=== PATIENT | male | born 1965 | race Caucasian/White ===

== ENCOUNTER 2020-07-31 16:55 | Outpatient (CLI) | payer BC, SELFPAY ==
[2020-07-31 17:43] LABS: SARS-CoV-2 Ag Negative (Negative)
== END 2020-07-31 16:56 | disposition home or self-care (01) ==
LOC: CHSLAB 16:59
PROVIDERS: PCP Family Medicine; Visit Provider Family Medicine
DX: Z20.828 Contact with and (suspected) exposure to other viral communicable diseases (principal)
CPT/HCPCS: 87426

== ENCOUNTER 2021-07-16 06:23 | Emergency (ER) | payer BC, SELFPAY ==
--- NOTE | ~2021-07-16 | CT_ITS ---
EXAMINATION: CT brain wo con EXAM DATE: 07/16/2021 08:11 INDICATION: blurred vision blurred vision today after possibly taking too much meds TECHNIQUE: Spiral CT of the head was performed without contrast. Axial, coronal and sagittal images were reviewed. The dose-length product (DLP) for this examination was 605.33 mGy-cm. The exposure w as tailored according to patient size, and iterative reconstruction (ASIR) was used as additional dos e reduction technique. Comparison is made to prior examination from 04/29/2019. FINDINGS: There is no acute intraparenchymal hemorrhage. No evidence of intraparenchymal brain mass lesion. No evidence of acute infarction. There is no mass effect or midline shift. The ventricles are normal in size. There are no extra-axial collections. There are no acute calvarial fractures. T he orbits are unremarkable. Soft tissue is unremarkable. The visualized sinuses and mastoid air ave ls are well aerated. IMPRESSION: 1. No acute intracranial findings. Reviewed, dictated and finalized at location B.
[2021-07-16 06:50] VITALS: BP 143/81; PULSE 92; RESP 21; TEMP 36.8; O2SAT 99
--- NOTE | 2021-07-16 06:57 | ECG_ITS ---
Measurements Intervals [place] Rate: 86 P: 18 DE: 233 QRS: 58 QRSD: 89 T: 7 QT: 367 QTc: 441 Interpretive Statements SINUS RHYTHM WITH FIRST DEGREE AV BLOCK EARLY PRECORDIAL R/S TRANSITION MINIMAL Q WAVES- INFERIOR LEADS ABNORMAL ECG Electronically Signed On 07-16-2021 8:40:05 CDT by Gregory Mckeon D.O.
--- NOTE | 2021-07-16 07:00 | ED.EYEPROB ---
HPI - Eye Problem General Chief complaint: Eye Problems <Cj Salmeron MD - Last Filed: 07/16/21 07:04> Stated complaint: Dizzy blured eyes <Cj Salmeron MD - Last Filed: 07/16/21 07:04> Source: patient <Cj Salmeron MD - Last Filed: 07/16/21 07:04> Mode of arrival: ambulatory <Cj Salmeron MD - Last Filed: 07/16/21 07:04> History of Present Illness HPI Narrative: this is a 56-year-old gentleman that presents after he inadvertently took extra dose of his Lamictal and developed ataxia and double vision, there is no chest pain no shortness of breath no fever chills, patient does have a history of seizures there is no chest pain no abdominal pain no headaches. <Cj Salmeron MD - Last Filed: 07/16/21 07:04> chief complaint: vision change <Cj Salmeron MD - Last Filed: 07/16/21 07:04> Onset (ago): hour(s) <Cj Salmeron MD - Last Filed: 07/16/21 07:04> Onset description: sudden <Cj Salmeron MD - Last Filed: 07/16/21 07:04> Duration: improved <Cj Salmeron MD - Last Filed: 07/16/21 07:04> Location: both eyes <Cj Salmeron MD - Last Filed: 07/16/21 07:04> Mechanism: other ( inadvertently took double dose of his Lamictal) <Cj Salmeron MD - Last Filed: 07/16/21 07:04> Severity: mild <Cj Salmeron MD - Last Filed: 07/16/21 07:04> Related Data Home medications: Home Medications Medication Instructions Recorded Confirmed lamotrigine 400 mg PO DAILY 07/16/21 07/16/21 <Cj Salmeron MD - Last Filed: 07/16/21 07:04> Allergies/adverse reactions: Allergies Allergy/AdvReac Type Severity Reaction Status Date / Time No Known Allergies Allergy Verified 07/16/21 06:43 <Cj Salmeron MD - Last Filed: 07/16/21 07:04> Review of Systems Review of Systems: All systems reviewed & are unremarkable except as noted in HPI and below <Cj Salmeron MD - Last Filed: 07/16/21 07:04> [facility] Past Medical History Medical History: Medical History Seizures <Cj Salmeron MD - Last Filed: 07/16/21 07:04> Family History Family History: Family History Other Family history of alcoholism Family history of arthritis Hypertension <Cj Salmeron MD - Last Filed: 07/16/21 07:04> Social History Social History: Social History Alcohol intake: never <Cj Salmeron MD - Last Filed: 07/16/21 07:04> Exam Const: General: no acute distress and alert <Cj Salmeron MD - Last Filed: 07/16/21 07:04> Orientation/consciousness: patient oriented x3 <Cj Salmeron MD - Last Filed: 07/16/21 07:04> HENMT: Head: normal to inspection <Cj Salmeron MD - Last Filed: 07/16/21 07:04> Eyes: Conjunctivae: conjunctivae normal <Cj Salmeron MD - Last Filed: 07/16/21 07:04> Pupils: Equal, round and reactive pupils present <Cj Salmeron MD - Last Filed: 07/16/21 07:04> Neck: Neck: normal visual inspection and no lymphadenopathy <Cj Salmeron MD - Last Filed: 07/16/21 07:04> Chest: Chest palpation & inspection: normal inspection of the chest <Cj Salmeron MD - Last Filed: 07/16/21 07:04> Resp: Effort & Inspection: normal respiratory effort <Cj Salmeron MD - Last Filed: 07/16/21 07:04> Auscultation: clear to auscultation bilaterally <Cj Salmeron MD - Last Filed: 07/16/21 07:04> Cardio: Rate: regular rate <Cj Salmeron MD - Last Filed: 07/16/21 07:04> Rhythm: regular rhythm <Cj Salmeron MD - Last Filed: 07/16/21 07:04> GI: Auscultation: normal bowel sounds <jC Salmeron MD - Last Filed: 07/16/21 07:04> Urinary Catheter: Urinary Catheter: patent and draining <Cj Salmeron MD - Last Filed: 06/19
--- NOTE | 2021-07-16 07:07 | PC.NURSE ---
poison control not contacted per MD Salmeron.
[2021-07-16] MEDS: SODIUM CHLORIDE 0.9% IV 500 ML 999 ML IV CONT (07:22)
[2021-07-16 07:31] LABS: Alanine Aminotransferase 42 U/L (16-63); Albumin Level 3.7 g/dL (3.4-5.0); Alkaline Phosphatase 99 U/L (46-116); Anion Gap 10 mmol/L (8-16); Aspartate Amino Transferase 22 U/L (15-37); Bilirubin,Total 0.5 mg/dL (0.00-1.00); Blood Urea Nitrogen 17 mg/dL (7-18); Calcium 8.1 mg/dL (8.5-10.1); Carbon Dioxide 27 mmol/L (21-32); Chloride 104 mmol/L (98-108); Creatine Kinase 87 U/L (39-308); Estimated CRCL calculation 71 ml/min; Estimated Glomerular Filt Rate > 60; Glucose 99 mg/dL (70-99); Osmolality Calculated 293 mOsm/kg (285-295); Potassium 3.8 mmol/L (3.5-5.1); Sodium 141 mmol/L (136-145); Total Protein 6.6 g/dL (6.4-8.2)
--- NOTE | 2021-07-16 08:10 | PC.NURSE ---
pt returned from CT. amb steadily without assistance to bathroom to void.
[2021-07-16 09:09] VITALS: BP 132/70; PULSE 79; RESP 16; TEMP 36.4; O2SAT 98
[2021-07-16] MEDS: CALCIUM CARBONATE (TUMS) 500 MG (200 MG ELEMENTAL) 400 MG PO (09:18)
== END 2021-07-16 09:22 | disposition home or self-care (01) ==
PROVIDERS: Emergency Provider Emergency Medicine; PCP Family Medicine
DX: T50.901A Poisoning by unspecified drugs, medicaments and biological substances, accidental (unintentional), initial encounter (principal); H53.2 Diplopia; R27.0 Ataxia, unspecified
CPT/HCPCS: 36415; 70450; 80053; 82550; 93005; 96360; 99283; 99284; A9270; J7040

== ENCOUNTER 2021-08-06 15:37 | Outpatient (CLI) | payer BC, SELFPAY ==
--- NOTE | ~2021-08-06 | XR_ITS ---
EXAMINATION:XR cervical spine min 6V DATE: 08/06/2021 16:00 INDICATION: Cervical radiculopathy with 2 weeks of pain shooting down the right arm. TECHNIQUE: AP, lateral, lateral flexion, lateral extension, left and right oblique and odontoid views of the cervical spine are provided. COMPARISON: CT dated 05/30/2019 FINDINGS: Straightening of the normal cervical lordosis. Hypermobility with flexion and negligible motion in th e upper cervical spine with attempted extension. Odontoid is intact. Mild atlantoaxial osteoarthritis . Vertebral body heights are normal. Moderate disc height loss at C3-C4 and mild disc height loss at C4-C5 and C5-C6. Small posterior endplate osteophytes resulting in mild central canal stenosis at eac h of these levels. Moderate to severe bilateral uncovertebral osteoarthritis also with each of these levels with multilevel mild cervical facet osteoarthritis. This contributes to mild neural foraminal stenosis on the left at C5-C6, on the right at C4-C5 and C5-C6 and minimal neural from stenosis bilat erally at C3-C4. Fixation screws at the left humeral head as seen on radiograph dated 05/30/2019. Prev ertebral soft tissues are normal. IMPRESSION: 1. Mild to moderate cervical spondylosis 2. Cervical hypomobility with flexion and particularly with attempted extension. Reviewed, dictated and finalized at location A. 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 Mild to moderate cervical spondylosis 2. Cervical hypomobility with flexion and particularly with attempted extension .
== END 2021-08-06 15:38 | disposition home or self-care (01) ==
LOC: CHSIMG 15:40
PROVIDERS: PCP Family Medicine; Visit Provider Neurological Surgery
DX: M54.12 Radiculopathy, cervical region (principal)
CPT/HCPCS: 72052

== ENCOUNTER 2021-11-12 07:24 | Emergency (ER) | payer OTHER, SELFPAY ==
--- NOTE | ~2021-11-12 | XR_ITS ---
EXAMINATION: [id number] DATE: 11/12/2021 08:16 INDICATION: Left anterior chest pain. Fall. TECHNIQUE: A frontal view of the chest and 2 views on 3 radiographs of the left ribs were obtained. COMPARISON: Chest 2 views 05/30/2019 FINDINGS: There is mild atelectasis at left lung base. No pleural effusion or pneumothorax. The heart size is normal. There is internal fixation of left humerus. There are fractures of left fifth and si xth ribs. IMPRESSION: 1. Acute fractures of left fifth and sixth ribs. 2. Mild atelectasis at left lung base. Reviewed, dictated and finalized at location A. ICAL WRITER
[2021-11-12 07:30] VITALS: BP 138/83; PULSE 94; RESP 20; TEMP 36.6; O2SAT 100
--- NOTE | 2021-11-12 07:43 | ED.FALL ---
HPI - Fall General Chief Complaint: Fall Stated Complaint: FELL ON ICE RIB PAIN Time Seen by Provider: 11/12/21 07:43 Source: patient History of Present Illness HPI Narrative: 56-year-old male with a history of seizures slipped on ice 20 minutes fell on his left side. No head injury. No loss of consciousness. No neck or spine pain. He presents with -- left chest wall pain made worse by deep breathing. -- shoulder pain. No bruising/laceration. No ENT. MD complaint: fall Onset (ago): minute(s) ( 20 minutes ago) Fall from: standing Fall witnessed: no Place fall occurred: work Loss of consciousness: none Prolonged down time: no Symptoms prior to fall: none Context: tripped/slipped Location of injury: chest Location of injury - extremities: Left: shoulder Severity: severe Quality: sharp Associated symptoms (after fall): chest pain Related Data Home Medications Medication Instructions Recorded Confirmed lamotrigine 400 mg PO BID 07/16/21 11/12/21 Allergies Allergy/AdvReac Type Severity Reaction Status Date / Time No Known Allergies Allergy Verified 07/16/21 06:43 Review of Systems Review of Systems: All systems reviewed & are unremarkable except as noted in HPI and below Constitutional: Constitutional: Reports as per HPI and Reports no additional constitutional complaints Eyes: Eyes: Reports as per HPI and Reports no additional eye complaints ENT: Reports system reviewed and no additional complaints, except as documented Cardiovascular: Cardiovascular: Reports as per HPI Respiratory: Respiratory: Reports as per HPI and Reports no additional respiratory complaints Comments: left chest wall pain predominantly anteriorly Gastrointestinal: Gastrointestinal: Reports as per HPI and Reports no additional gastrointestinal complaints Genitourinary: Genitourinary: Reports no additional male genitourinary complaints Musculoskeletal: Musculoskeletal: Reports no additional musculoskeletal complaints Integumentary/Breasts: Skin/Breast: Reports system reviewed and no additional complaints, except as docu Neurologic: Reports system reviewed and no additional complaints, except as documented and Reports as per HPI Psychiatric: Psychiatric: Reports no additional psychiatric complaints and Reports as per HPI Endocrine: Endocrine: Reports no additional endocrine complaints and Reports as per HPI Hematologic/Lymphatic: Hematologic/Lymphatic: Reports no additional hematologic/lymphatic complaints and Reports as per HPI Allergic/Immunologic: Allergic/Immunologic: Reports no additional allergic/immunologic complaints and Reports as per HPI [facility] Past Medical History Medical History Seizures Family History Family History Other Family history of alcoholism Family history of arthritis Hypertension Social History Social History Alcohol intake: never Exam Const: General: no acute distress and alert Orientation/consciousness: patient oriented x3 HENMT: Head: normal to inspection Eyes: Conjunctivae: conjunctivae normal Pupils: Equal, round and reactive pupils present Neck: Neck: normal visual inspection Chest: Chest palpation & inspection: normal inspection of the chest Other: tenderness on palpation of left anterior chest Resp: Effort & Inspection: normal respiratory effort Auscultation: clear to auscultation bilaterally Cardio: Rate: regular rate Rhythm: regular rhythm GI: GI Palp: Yes Soft to palpation : General: Yes no CVA tenderness Testes: Testes normal Back/Spine/Pelvis: Back: no CVA tenderness Skin: General skin exam: normal color Rashes: no rashes Neuro: General: patient oriented x3, moves all extremities and no meningeal signs Extrem: General: normal to inspection and no pedal edema Psych: Appearance
[2021-11-12] MEDS: KETOROLAC 30 MG/ML VIAL (*BKC) IM (08:10)
[2021-11-12] MEDS: ACETAMINOPHEN 500 MG TABLET 1000 MG PO (08:36)
[2021-11-12 08:48] VITALS: BP 131/66; PULSE 94; RESP 20; TEMP 36.4; O2SAT 98
== END 2021-11-12 09:02 | disposition home or self-care (01) ==
PROVIDERS: Emergency Provider Internal Medicine Critical Care Medicine; PCP Family Medicine
DX: S22.42XA Multiple fractures of ribs, left side, initial encounter for closed fracture (principal); W00.0XXA Fall on same level due to ice and snow, initial encounter
CPT/HCPCS: 71101; 96372; 99283; J1885

== ENCOUNTER 2022-03-14 18:54 | Emergency (ER) | payer BC, SELFPAY ==
[2022-03-14 18:55] VITALS: BP 136/82; PULSE 83; RESP 18; TEMP 37; O2SAT 100
--- NOTE | 2022-03-14 19:27 | ED.DENTAL ---
HPI - Dental/Oral General Chief complaint: Dental/Oral Stated complaint: tongue lesions Time Seen by Provider: 03/14/22 19:14 History of Present Illness HPI Narrative: 56-year-old male presented emergency room complaints of small red areas to the tongue. Patient states they are painless, and was eat spicy foods. Patient states that they have been present for the last 5 days. Patient also remarks that he has started taking Wellbutrin. Patient denies any other symptoms. Related Data Home Medications Medication Instructions Recorded Confirmed lamotrigine 200 mg tablet 400 mg PO BID 07/16/21 11/12/21 Allergies Allergy/AdvReac Type Severity Reaction Status Date / Time No Known Allergies Allergy Verified 03/14/22 18:58 Review of Systems Review of Systems: CONSTITUTIONAL: Denies fever, chills, or sweats. EYES: Denies visual changes, redness, or discharge. ENT: Denies rhinorrhea, congestion, sore throat, or otalgia. CARDIOVASCULAR: Denies chest pain, palpitations, or edema. RESPIRATORY: Denies cough or dyspnea. GASTROINTESTINAL: Denies abdominal pain, nausea, vomiting, or diarrhea. GENITOURINARY: Denies dysuria or hematuria. SKIN: Denies rash or itching. MUSCULOSKELETAL: Denies back pain, joint pain, or myalgia. NEUROLOGIC: Denies headache, numbness, dizziness, or weakness. PSYCHIATRIC: Denies anxiety or depression. PMFSH Past Medical History Medical History Seizures Family History Family History Other Family history of alcoholism Family history of arthritis Hypertension Social History Social History Alcohol intake: never Exam Narrative: GENERAL: Well-appearing, well-nourished, no physical limitations, and in no acute distress. HEAD: Normocephalic, atraumatic. EYES: Conjunctivae normal, PERRLA and EOMI. ENT: External nose normal, Nares clear, no rhinorrhea or epistaxis. Mucous membranes moist. Oropharynx without tonsillar hypertrophy exudate or other lesions. External ears normal, bilateral TMs normal bilaterally. Multiple, erythematous subcentimeter areas on posterior side of the tongue. There is no signs of centralized ulcerations. No bleeding or swelling noted. NECK: Supple. No meningeal signs. No adenopathy or masses. No carotid bruits or JVD CHEST: Clear to auscultation. No respiratory distress. No wheezes rales or rhonchi. No tenderness. HEART: Regular rate and rhythm. No murmur heard. Normal peripheral pulses. EXTREMITIES: Normal range of motion. No edema. No clubbing or cyanosis SKIN: Warm, dry, no rash. No noted wounds NEURO: No focal deficits. Alert and oriented x3. MAEW. CN's II-XI intact bilaterally, normal gait PSYCH: Cooperative. Normal mood and affect. Course Vital Signs Vital signs: Vital Signs Temperature 37.0 C 03/14/22 18:55 Pulse Rate 83 03/14/22 18:55 Respiratory Rate 18 03/14/22 18:55 Blood Pressure 136/82 03/14/22 18:55 Pulse Oximetry 100 03/14/22 18:55 Oxygen Delivery Room Air 03/14/22 18:55 Temperature 37.0 C 03/14/22 18:55 Pulse Rate 83 03/14/22 18:55 Respiratory Rate 18 03/14/22 18:55 Blood Pressure 136/82 03/14/22 18:55 Pulse Oximetry 100 03/14/22 18:55 Oxygen Delivery Room Air 03/14/22 18:55 Discharge Plan Discharge Clinical Impression: Aphthous ulcer Patient Disposition: Home, Self-Care Condition: Stable Instructions: Antibiotic Form, Canker Sores (ED) Prescriptions: New lidocaine HCl [Lidocaine Viscous] 2 % solution 1 applic mucous membrane TID PRN (Reason: pain) Qty: 100 0RF No Action lamotrigine 200 mg tablet 400 mg PO BID hydrocodone-acetaminophen 5-325 mg tablet 1 tablet PO Q6H PRN (Reason: pain) Qty: 14 0RF Follow-up/Referrals: Joaquin Aguiar M.D. [Primary Care Provider] - Stand Alone Forms:
== END 2022-03-14 19:44 | disposition home or self-care (01) ==
PROVIDERS: Emergency Provider Nurse Practitioner Family; PCP Family Medicine
DX: K12.0 Recurrent oral aphthae (principal)
CPT/HCPCS: 96372; 99283; J1100

== ENCOUNTER 2022-08-08 16:11 | Outpatient (RCR) | payer OTHER, SELFPAY ==
--- NOTE | 2022-08-08 17:28 | PTOPEVAL1 ---
Assessment and note entered by JT File, PT Evaluation Information Assessment Status Evaluation Diagnosis L knee mensicus tear s/p arthroscopic partial mensicectomy Onset 03/16/22 Subjective Information patient reports he injured his knee at work on . he reports he was getting out of a car responding to a call. 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 he reports he works for [employer] and [employer]. he reports had surgery on 07/21/22. he reports he had his follow up with his surgeon last week. he reports he is having a lot of swelling in the L knee. he reports he was checked for blood clots and this was negative. he reports aside from the swelling, he continues to ahve pain in the patella , and decreased rom. Reported Pain Level Pain Score 2: Self Report Assessment PT Clinical Summary mr. leone presents to skilled PT services for evaluation and treatment of L knee pain and swelling post op meniscus surgery. he presents this date with weakness, pain, decreased rom, abnormal gait mechanics, and swelling in the L knee and calf. he would do well to attend skilled PT to improve his objective/functional deficits and progress towards a return to his prior level work and functional activity performance. Plan of Care Interventions Electrical Stimulation,Gait Training,Hot Pack/Cold Pack,Manual Therapy,Neuro Re-education,Patient/ Caregiver Educati,Therapeutic Activities, Therapeutic Exercise PT Services Indicated Yes Treatment Frequency and 3x weekly for 12 visits Duration These treatments will address the objective and functional deficits as defined above. The patient will be advanced safely and appropriately in order for the patient to progress towards his/her prior level of function. Additional exercises will be introduced and as well as a comprehensive home exercise program upon discharge, if needed, ?to ensure carryover of functional gains achieved in the clinic. This treatment plan has been reviewed and agreement upon by the patient.
--- NOTE | 2022-10-06 21:30 | BUPTOPEVAL1 ---
Assessment and note entered by JT File, PT Evaluation Information Assessment Status Re-evaluation Diagnosis L knee mensicus tear s/p arthroscopic partial mensicectomy Onset 03/16/22 Subjective Information patient reports in general the L knee feels good, except for when he is in a deep squat. he reports the only time he has pain is with deep squatting. he reports this causes severe increased pain and popping in the L knee. he reports this was not present prior to his surgery. Reported Pain Level Pain Score 0: Self Report Additional Pain Score Comments severe pain in the L knee with deep squat Assessment PT Clinical Summary mr. leone presents to skilled PT services for treatment and re-evaluation at the end of his current POC. as of this date, he displays improved rom, strength, and gait mechanics. however, he continues to have severe pain and popping in the L knee with deep squatting activities. this was not present in his knee prior to injury, and patient would like to continue skilled PT to continue to work on complete elimination of his pain during deep squatting. he would benefit from continued skilled PT to continue to address his objective/ functional deficits, pain, and lack of full goals achievement. Plan of Care Interventions Gait Training,Manual Therapy,Neuro Re-education, Patient/Caregiver Educati,Therapeutic Activities, Therapeutic Exercise PT Services Indicated Yes Treatment Frequency and continue skilled PT 1x weekly for 4 more visits Duration These treatments will address the objective and functional deficits as defined above. The patient will be advanced safely and appropriately in order for the patient to progress towards his/her prior level of function. Additional exercises will be introduced and as well as a comprehensive home exercise program upon discharge, if needed, ?to ensure carryover of functional gains achieved in the clinic. This treatment plan has been reviewed and agreement upon by the patient.
--- NOTE | 2022-11-23 17:21 | PTOPDC ---
Assessment and note entered by JT File, PT Evaluation Information Assessment Status Discharge Diagnosis L knee mensicus tear s/p arthroscopic partial mensicectomy Onset 03/16/22 Subjective Information patient reports he has no pain in the L knee, except for deep squatting. he reports he recently asked the surgeon about this pain, and reports he thinks it may be scar tissue. he reports deep squatting is the only thing that causes him pain and that he avoids. he reports now he is more complicated by the R knee pain than the L knee pain. Reported Pain Level Pain Score 0,5: Self Report Assessment PT Clinical Summary mr. leone presents to skilled PT services for his 16th skilled therapy visit. as of this date, he presents with full strength, rom, and normal gait/ stair ambulation mechanics. he has met over 75% of goals for skilled PT, and is only limited by the L knee with deep squatting. he is appropriate for DC at this time, and will continue with independent HEP as he returns to full duty work. Plan of Care Treatment Frequency and DC to independent HEP and return to full work Duration
== END 2022-11-23 17:37 | disposition home or self-care (01) ==
LOC: CHSPT 16:11
PROVIDERS: Visit Provider Orthopaedic Surgery
DX: Z48.89 Encounter for other specified surgical aftercare (principal)
CPT/HCPCS: 20560; 97014; 97016; 97110; 97161; 97530; G0283

== ENCOUNTER 2022-10-16 07:46 | Emergency (ER) | payer BC, SELFPAY ==
--- NOTE | ~2022-10-16 | XR_ITS ---
EXAMINATION: XR chest 2V 10/16/2022 09:56 INDICATION: Cough and fever PROCEDURE: 2 view chest COMPARISON: Comparison to multiple prior studies sequentially, with oldest reviewed study dated 10/06. FINDINGS: The lungs are clear. The cardiomediastinal silhouette is within normal limits. There are no pleural effusions. There is no pneumothorax suspected. There are are partially visualized screws in the left humeral head. The lungs are hyperinflated which is consistent with, but not diagnostic o f chronic obstructive pulmonary disease. IMPRESSION: 1: NO ACUTE CARDIOPULMONARY DISEASE. Reviewed, dictated and finalized at location A. ORTIZATION CLERK
[2022-10-16 07:48] VITALS: BP 107/63; PULSE 105; RESP 20; TEMP 37.1; O2SAT 99
--- NOTE | 2022-10-16 07:53 | ECG_ITS ---
Measurements Intervals [place] Rate: 95 P: 21 MT: 215 QRS: 57 QRSD: 86 T: 47 QT: 336 QTc: 423 Interpretive Statements SINUS RHYTHM WITH FIRST DEGREE AV BLOCK EARLY PRECORDIAL R/S TRANSITION BORDERLINE ECG COMPARED TO ECG 07/16/2021 07:14:18 NO SIGNIFICANT CHANGES Electronically Signed On 10-16-2022 8:04:03 EXTRACT WRINGER by Gregory Mckeon D.O.
[2022-10-16 08:01] VITALS: PULSE 94; O2SAT 100
[2022-10-16 08:03] VITALS: BP 130/66; PULSE 94; RESP 19; O2SAT 100
[2022-10-16 08:25] LABS: Basophils Percent Auto 0.3 % (0.2-1.2); Eosinophils Absolute Auto 0.1 K/mm3 (0-0.3); Eosinophils Percent Auto 0.7 % (0-4.4); Hematocrit 48.1 % (42.0-52.0); Hemoglobin 16.7 g/dL (14.0-18.0); Immature Granulocyte Absolute 0.04 K/mm3 (0.00-0.031); Immature Granulocyte Percent A 0.3 % (0-0.5); Lymphocytes Absolute Auto 1.01 K/mm3 (0.9-3.2); Lymphocytes Percent Auto 8.5 % (18.3-44.2); Mean Corpuscular HGB Conc 34.7 g/dl (32-36); Mean Corpuscular Hemoglobin 31.4 pg (26-34); Mean Corpuscular Volume 90.4 fl (80-100); Mean Platelet Volume 9.1 fl (7.4-10.4); Monocytes Absolute Auto 0.9 K/mm3 (0.1-0.6); Monocytes Percent Auto 7.4 % (2.6-8.5); Neutrophils Absolute Auto 9.8 K/mm3 (1.3-6.7); Neutrophils Percent Auto 82.8 % (45.5-73.1); Platelet Count Result 308 k/mm3 (150-375); Red Blood Count 5.32 M/mm3 (4.6-6.20); Red Cell Distribution Width 12.8 % (11.5-14.5); White Blood Count 11.8 K/mm3 (4.5-10.0)
[2022-10-16] MEDS: SODIUM CHLORIDE 0.9% IV 1,000 ML 999 ML IV CONT ×2 (08:28→09:51)
[2022-10-16] MEDS: KETOROLAC 30 MG/ML VIAL (*BKC) IV PUSH (08:29)
[2022-10-16 08:35] LABS: Alanine Aminotransferase 68 U/L (6-50); Albumin Level 4.7 g/dL (3.5-5.1); Alkaline Phosphatase 136 U/L (38-126); Anion Gap 8 mmol/L (8-16); Aspartate Amino Transferase 71 U/L (17-59); Bilirubin,Total 1.1 mg/dL (0.2-1.3); Blood Urea Nitrogen 14 mg/dL (9-20); Carbon Dioxide 28 mmol/L (22-30); Chloride 102 mmol/L (98-107); Estimated CRCL calculation 69 ml/min; Estimated Glomerular Filt Rate > 60; Glucose 108 mg/dL (65-110); Potassium 3.9 mmol/L (3.4-5.0); Sodium 138 mmol/L (137-145)
[2022-10-16 09:12] LABS: Influenza A QL RT-PCR Negative (Negative); Influenza B QL RT-PCR Negative (Negative); SARS-CoV-2 RNA PCR Negative
--- NOTE | 2022-10-16 09:38 | ED.GENADULT ---
HPI - General Adult General Chief complaint: Seizure Stated complaint: I had a seizure last night Time Seen by Provider: 10/16/22 07:54 History of Present Illness HPI narrative: Patient is a 57-year-old male who presents ER with concerns for having a seizure. Patient reports last night he was having some sweats and chills and also had some shaking. He then was having bad dreams. When he woke up this morning he felt a little achy and thought that that was consistent with having had a seizure. He did not have loss of bowel or bladder. He did not bite his tongue. He takes Lamictal. Related Data Home Medications Medication Instructions Recorded Confirmed lamotrigine 200 mg tablet 400 mg PO BID 07/16/21 11/12/21 atorvastatin 20 mg tablet mg 10/16/22 Allergies Allergy/AdvReac Type Severity Reaction Status Date / Time No Known Allergies Allergy Verified 10/16/22 08:03 Review of Systems Review of Systems: All systems reviewed & are unremarkable except as noted in HPI and below Constitutional: Constitutional: Denies chills, Denies fatigue and Denies fever(s) ENT: Denies dysphagia and Denies nasal congestion Cardiovascular: Cardiovascular: Denies chest pain, Denies rapid heart rate and Denies radiating jaw, neck or arm pain Respiratory: Respiratory: Denies cough and Denies dyspnea Gastrointestinal: Gastrointestinal: Denies abdominal pain, Denies nausea and Denies vomiting Musculoskeletal: Musculoskeletal: Reports myalgias, Denies arthralgias and Denies joint swelling Neurologic: Denies syncope, Denies headache(s), Denies focal weakness and Denies numbness PMFSH Past Medical History Medical History Seizures Family History Family History Other Family history of alcoholism Family history of arthritis Hypertension Social History Social History Alcohol intake: never Exam Narrative: GENERAL: Well-appearing, well-nourished, and in no acute distress. HEAD: Normocephalic, atraumatic. EYES: PERRL and EOMI. ENT: Mucous membranes moist. CHEST: Clear to auscultation. No respiratory distress. HEART: Regular rate and rhythm. Normal peripheral pulses. ABDOMEN: Soft, nontender, nondistended. EXTREMITIES: Normal range of motion. No edema. SKIN: Warm, dry, no rash. NEURO: Alert and oriented x3. PSYCH: Normal mood and affect. Course Course Emergency Course: Patient resting comfortably. No evidence of tongue biting. Suspect patient is having viral syndrome as opposed to post seizure symptoms. Patient will be discharged. Vital Signs Vital signs: Vital Signs Temperature 98.8 F 10/16/22 07:48 Pulse Rate 105 H 10/16/22 07:48 Respiratory Rate 20 10/16/22 07:48 Blood Pressure 107/63 10/16/22 07:48 Pulse Oximetry 99 10/16/22 07:48 Oxygen Delivery Room Air 10/16/22 07:48 Temperature 98.8 F 10/16/22 07:48 Pulse Rate 60 10/16/22 12:50 Respiratory Rate 18 10/16/22 12:50 Blood Pressure 115/72 10/16/22 12:50 Pulse Oximetry 96 10/16/22 12:50 Oxygen Delivery Room Air 10/16/22 10:49 Medical Decision Making Vital Signs Vital Signs: Vital Signs Temperature 98.8 F 10/16/22 07:48 Pulse Rate 105 H 10/16/22 07:48 Respiratory Rate 20 10/16/22 07:48 Blood Pressure 107/63 10/16/22 07:48 Pulse Oximetry 99 10/16/22 07:48 Oxygen Delivery Room Air 10/16/22 07:48 Temperature 98.8 F 10/16/22 07:48 Pulse Rate 60 10/16/22 12:50 Respiratory Rate 18 10/16/22 12:50 Blood Pressure 115/72 10/16/22 12:50 Pulse Oximetry 96 10/16/22 12:50 Oxygen Delivery Room Air 10/16/22 10:49 Lab Data 10/16/22 08:21 10/16/22 08:20 Labs: Lab Results 10/16/22 10/16/22 10/16/22 Range/Units 08:20 08:20 08:21 WBC 11.8 H (4.5-10.0) K/mm3 RBC 5.3
[2022-10-16 10:49] VITALS: BP 109/65; PULSE 92; RESP 16; O2SAT 100; O2SAT 98
[2022-10-16 12:50] VITALS: BP 115/72; PULSE 60; RESP 18; O2SAT 96
== END 2022-10-16 13:03 | disposition home or self-care (01) ==
PROVIDERS: Emergency Provider Emergency Medicine
DX: B34.9 Viral infection, unspecified (principal); Z20.822 Contact with and (suspected) exposure to COVID-19
CPT/HCPCS: 36415; 71046; 80053; 85025; 87636; 93005; 96361; 96374; 99284; J1885; J7030

== ENCOUNTER 2022-12-28 16:00 | Outpatient (RCR) | payer BC, SELFPAY ==
--- NOTE | 2022-12-28 16:49 | PTOPEVAL1 ---
Assessment and note entered by JT File, PT Evaluation Information Assessment Status Evaluation Diagnosis R knee pain Onset 12/21/22 Subjective Information patient reports he is coming to therapy for pain in the R knee. he reports he has been having pain in the R knee for 3 weeks. he reports he does have a large tear in the medial meniscus. he reports no surgery scheduled at this time. he reports he had an injection last week. he reports since injection it has been doing well. he reports prior to the injection any rotation, sitting, and steps would cause increased pain. Reported Pain Level Pain Score 0: Self Report Assessment PT Clinical Summary mr. leone is a 57 yo male who presents to skilled PT services for evaluation and treatment of R knee pain. he has a torn meniscus of the medial compartment of the R knee. he displays decreased R knee flexion, hamstrings tightness, and decreased functional activity performance. however, he has been doing significantly better since his injection last week. he would benefit from continued skilled PT to address his objective/ functional deficits and progress towards a return to his prior level functional activity performance and quality of life. Plan of Care Interventions Electrical Stimulation,Gait Training,Hot Pack/Cold Pack,Manual Therapy,Neuro Re-education,Patient/ Caregiver Educati,Therapeutic Activities, Therapeutic Exercise PT Services Indicated Yes Treatment Frequency and 2x weekly for 6 visits Duration These treatments will address the objective and functional deficits as defined above. The patient will be advanced safely and appropriately in order for the patient to progress towards his/her prior level of function. Additional exercises will be introduced and as well as a comprehensive home exercise program upon discharge, if needed, ?to ensure carryover of functional gains achieved in the clinic. This treatment plan has been reviewed and agreement upon by the patient.
== END 2022-12-28 23:59 | disposition home or self-care (01) ==
LOC: CHSPT 16:00
DX: M25.561 Pain in right knee (principal)
CPT/HCPCS: 97110; 97161

== ENCOUNTER 2023-12-15 18:00 | Emergency (ER) | payer OTHER, SELFPAY ==
--- NOTE | ~2023-12-15 | CT_ITS ---
EXAMINATION: CT orbit BI w con DATE: 12/15/2023 19:17 INDICATION: right sided eye pain, swelling, discharge . TECHNIQUE: Computed tomography (CT) of the orbits was performed with 75 mL Omnipaque 350 intravenous contrast. Automated exposure control and iterative reconstruction technique were employed. The dose-l ength product was 153.59 mGy-cm. COMPARISON: None. FINDINGS: Soft Tissues: Soft tissue swelling of the right upper and lower eyelids. Facial bones: No acute fracture. No lytic or blastic process. Eyes: The globes are intact. Mild preseptal edema/fluid and hyperemia. The soft tissue planes of the orbits are maintained. Paranasal Sinuses: Inferior right frontal and bilateral maxillary and ethmoid mucosal thickening. Th e remaining aerated spaces are clear Foreign Bodies: No radiopaque foreign bodies. Other Findings: None. IMPRESSION: CT findings concerning for right preseptal cellulitis. Reviewed, dictated and finalized at location [facility].
[2023-12-15 18:03] VITALS: BP 152/65; PULSE 92; RESP 18; TEMP 36.9; O2SAT 99
--- NOTE | 2023-12-15 18:07 | ED.EYEPROB ---
HPI - Eye Problem General Chief complaint: Eye Problems <GEE Barnett Last Filed: 12/17/23 10:20> Stated complaint: pink eye <GEE Barnett Last Filed: 12/17/23 10:20> Time Seen by Provider: 12/15/23 18:07 <Elizabeth Duran PA-C - Last Filed: 12/17/23 10:20> Focused HPI: This is a 58 year old male that presents to the ER for right eye pain and discharge. Ongoing since this morning. He was seen at urgent care and started on topical therapy. Reports progressive swelling which prompted him to be seen in the ER. Denies fevers or vision changes. GENERAL: Well-appearing, well-nourished, and in no acute distress. HEAD: Normocephalic, atraumatic. CHEST: Clear to auscultation. ?No respiratory distress. HEART: Regular rate and rhythm.? NEURO: ?Alert and oriented x3. Patient screened in triage and initial orders placed.? ?Additional care and disposition to be based upon?diagnostic testing and treatment. <Elizabeth Duran PA-C - Last Filed: 12/17/23 10:20> Focused HPI: This is a 58 year old male that presents to the ER for right eye pain and discharge. Ongoing since this morning. He was seen at urgent care and started on topical therapy for pink eye. Reports progressive swelling which prompted him to be seen in the ER. Denies fevers or vision changes. GENERAL: Well-appearing, well-nourished, and in no acute distress. HEAD: Normocephalic, atraumatic. CHEST: Clear to auscultation. ?No respiratory distress. HEART: Regular rate and rhythm.? NEURO: ?Alert and oriented x3. Patient screened in triage and initial orders placed.? ?Additional care and disposition to be based upon?diagnostic testing and treatment. <GEE Yost Last Filed: 12/16/23 03:39> Source: patient <GEE Yost Last Filed: 12/16/23 03:39> Mode of arrival: ambulatory <GEE Yost Last Filed: 12/16/23 03:39> Limitations: no limitations <Rosemary Garduno PA-C - Last Filed: 12/16/23 03:39> History of Present Illness HPI Narrative: Agree with above MSE documentation. Denies pain with eye movements. <Rosemary Garduno PA-C - Last Filed: 12/16/23 03:39> Related Data Home medications: Home Medications Medication Instructions Recorded Confirmed lamotrigine 200 mg tablet 400 mg PO BID 07/16/21 11/12/21 atorvastatin 20 mg tablet mg 10/16/22 <Elizabeth Duran PA-C - Last Filed: 12/17/23 10:20> Allergies/adverse reactions: Allergies Allergy/AdvReac Type Severity Reaction Status Date / Time No Known Allergies Allergy Verified 12/15/23 18:01 <Elizabeth Duran PA-C - Last Filed: 12/17/23 10:20> Review of Systems Review of Systems: CONSTITUTIONAL: Denies fever, chills, or sweats. EENT: See HPI. NEUROLOGIC: Denies headache, dizziness, numbness, or weakness. <Rosemary Garduno PA-C - Last Filed: 12/16/23 03:39> All systems reviewed & are unremarkable except as noted in HPI and below <Rosemary Garduno PA-C - Last Filed: 12/16/23 03:39> PMFSH Past Medical History Medical History: Medical History Seizures <Elizabeth Duran PA-C - Last Filed: 12/17/23 10:20> Family History Family History: Family History Other Family history of alcoholism Family history of arthritis Hypertension <Elizabeth Duran PA-C - Last Filed: 12/17/23 10:20> Social History Social History: Social History Alcohol intake: never <Elizabeth Duran PA-C - Last Filed: 12/17/23 10:20> Exam Narrative: GENERAL: Well appearing, well-nourished, non-toxic, in no acute distress. HEAD: Normocephalic, atraumatic. EYES: PERRL/EOMI. R eye conjunctiva diffusely erythematous and chemotic. Yellow green purulent drainage from R eye, crusting in eyelid
[2023-12-15 18:20] LABS: Basophils Absolute Auto 0.1 K/mm3 (0.0-0.1); Basophils Percent Auto 0.6 % (0.2-1.2); Eosinophils Absolute Auto 0.3 K/mm3 (0-0.3); Eosinophils Percent Auto 3.3 % (0-4.4); Hematocrit 46.3 % (42.0-52.0); Hemoglobin 15.7 g/dL (14.0-18.0); Immature Granulocyte Absolute 0.02 K/mm3 (0.00-0.031); Immature Granulocyte Percent A 0.2 % (0-0.5); Lymphocytes Absolute Auto 2.01 K/mm3 (0.9-3.2); Lymphocytes Percent Auto 19.9 % (18.3-44.2); Mean Corpuscular HGB Conc 33.9 g/dl (32-36); Mean Corpuscular Volume 91.5 fl (80-100); Mean Platelet Volume 9.4 fl (7.4-10.4); Monocytes Percent Auto 9.8 % (2.6-8.5); Neutrophils Absolute Auto 6.7 K/mm3 (1.3-6.7); Neutrophils Percent Auto 66.2 % (45.5-73.1); Platelet Count Result 295 k/mm3 (150-375); Red Blood Count 5.06 M/mm3 (4.6-6.20); Red Cell Distribution Width 12.8 % (11.5-14.5); White Blood Count 10.1 K/mm3 (4.5-10.0)
[2023-12-15 18:36] LABS: Anion Gap 3 mmol/L (4-12); Blood Urea Nitrogen 18 mg/dL (9-20); Calcium 9.2 mg/dL (8.4-10.2); Carbon Dioxide 32 mmol/L (22-30); Chloride 104 mmol/L (98-107); Estimated CRCL calculation 100 ml/min; Estimated Glomerular Filt Rate > 60; Glucose 126 mg/dL (65-110); Potassium 3.9 mmol/L (3.4-5.0); Sodium 139 mmol/L (137-145)
[2023-12-15 18:43] LABS: Erythrocyte Sedimentation Rate 4 mm/hr (0-20)
[2023-12-15 18:49] LABS: CRP < 0.5 mg/dL (<1.0)
[2023-12-15] MEDS: AMOXICILLIN/CLAVULANATE K 875-125 MG TAB 1 TABLET PO (20:52)
[2023-12-15] MEDS: CLINDAMYCIN HCL 150 MG CAP 300 MG PO (20:53)
[2023-12-15 20:56] VITALS: BP 143/80; PULSE 67; RESP 15; TEMP 36.7; O2SAT 99
== END 2023-12-15 20:57 | disposition home or self-care (01) ==
PROVIDERS: Physician Assistant; Emergency Provider Physician Assistant; PCP Family Medicine
DX: L03.213 Periorbital cellulitis (principal); H10.89 Other conjunctivitis
CPT/HCPCS: 36415; 70481; 80048; 85025; 85652; 86140; 99284; A9270; Q9967

== ENCOUNTER 2023-12-26 08:58 | Emergency (ER) | payer OTHER, SELFPAY ==
[2023-12-26 09:12] VITALS: BP 139/76; PULSE 92; RESP 18; TEMP 36.4; O2SAT 99
--- NOTE | 2023-12-26 09:33 | ED.EYEPROB ---
HPI - Eye Problem General Chief complaint: Eye Problems Stated complaint: eyes Time Seen by Provider: 12/26/23 09:02 History of Present Illness HPI Narrative: 58-year-old male presents to emergency department for bilateral eye redness for 1 day. Patient was seen at a clinic for right eye irritation and redness on 12/15/2023. He was prescribed Polytrim drops for conjunctivitis which he has been taking daily as directed since. States later that day on the he began having surrounding edema to his right eye which prompted him to come to the ER. He was seen in our emergency department and had CT scans of his orbits which showed findings concerning for right preseptal cellulitis. He was started on Augmentin and clindamycin which he states he took for approximately 4 days until he began developing diarrhea. States his symptoms had improved so he discontinued the antibiotics but continue the topical eyedrops. States yesterday he began noticing redness, itchiness and aching in both of his eyes with associated drainage. He reports a foreign body sensation in his left eye. He does not were contacts. Denies vision changes, photophobia, headache, fever, pain with EOMs. States he does not have swelling around his eyes like he did when he came on the , he has a picture of his eye at that time which does show significant periorbital swelling. States he has not followed up with an clinical documentation developer because the symptoms were improving. Related Data Home Medications Medication Instructions Recorded Confirmed lamotrigine 200 mg tablet 400 mg PO BID 07/16/21 11/12/21 atorvastatin 20 mg tablet mg 10/16/22 Allergies Allergy/AdvReac Type Severity Reaction Status Date / Time No Known Allergies Allergy Verified 12/26/23 09:17 Review of Systems Review of Systems: CONSTITUTIONAL: Denies fever, chills, or sweats. EYES: See HPI ENT: Denies rhinorrhea, congestion, sore throat, or otalgia. CARDIOVASCULAR: Denies chest pain, palpitations, or edema. RESPIRATORY: Denies cough or dyspnea. GASTROINTESTINAL: Denies abdominal pain, nausea, vomiting, or diarrhea. GENITOURINARY: Denies dysuria or hematuria. SKIN: Denies rash or itching. MUSCULOSKELETAL: Denies back pain, joint pain, or myalgia. NEUROLOGIC: Denies headache, numbness, or weakness. PSYCHIATRIC: Denies anxiety or depression. PMFSH Past Medical History Medical History Seizures Family History Family History Other Family history of alcoholism Family history of arthritis Hypertension Social History Social History Alcohol intake: never Exam Narrative: GENERAL: Well-appearing, well-nourished, and in no acute distress. HEAD: Normocephalic, atraumatic. EYES: PERRLA and EOMI. Bilateral palpebral and bulbar conjunctivae erythema. No chemosis or ciliary flush. No ophthalmoplegia or pain with extraocular movements. No surrounding periorbital edema or erythema. Fluorescein staining shows no evidence of ulcerations, keratitis or foreign bodies bilaterally. Intra-ocular pressures unsure 14 on the right eye and 17 in the left eye. ENT: Nares clear, no rhinorrhea or epistaxis. Mucous membranes moist. NECK: Supple. CHEST: Clear to auscultation. No respiratory distress. HEART: Regular rate and rhythm. No murmur heard. Normal peripheral pulses. EXTREMITIES: Normal range of motion. No edema. SKIN: Warm, dry, no rash. NEURO: No focal deficits. Alert and oriented x3 Course Vital Signs Vital signs: Vital Signs Temperature 97.6 F 12/26/23 09:12 Pulse Rate 92 12/26/23 09:12 Respiratory Rate 18 12/26/23 09:12 Blood Pressure 139/76 12/26/23 09:12 Pulse Oximetry 99 12/26/23 09:12 Oxygen Delivery Room Air 12/26/23 09:12 Temperature 97.6 F 12/26/23 09:12 Pulse Rate 81 04/0
[2023-12-26] MEDS: WATER FOR IRRIGATION, STERILE 500 ML BOTTLE (09:40)
[2023-12-26 10:32] VITALS: BP 122/76; PULSE 81; RESP 18; O2SAT 98
== END 2023-12-26 10:33 | disposition home or self-care (01) ==
PROVIDERS: Emergency Provider Physician Assistant; PCP Family Medicine
DX: H10.89 Other conjunctivitis (principal)
CPT/HCPCS: 99283; A9270

== ENCOUNTER 2024-08-29 07:04 | Emergency (ER) | payer OTHER, SELFPAY ==
--- NOTE | ~2024-08-29 | CT_ITS ---
CT of the Abdomen and Pelvis: Indication: Rectal bleeding Technique: 2.5 mm axial scans were obtained through the abdomen and pelvis following intravenous adm inistration of 100 cc of Omnipaque 350. Dose reduction technique was used on this scan by utilizing a utomated exposure control and iterative reconstruction technique. The dose-length product (DLP) was 8 16.08 mGy-cm. Findings: Scans through the lung bases are unremarkable. The liver, spleen, pancreas, adrenals and kidneys are within normal limits. Small gallstone present. No evidence of aortic aneurysm. No lymphadenopathy. No bowel obstruction or bowel wall thickening. There is no evidence to suggest acute appendicitis. Sm all fat-containing umbilical hernia noted. Images through the pelvis were performed. Urinary bladder unremarkable. Prostate gland mildly enlarge d. No abnormal pelvic mass seen. No ascites. Impression: No distinct etiology for rectal bleeding identified. Small gallstone. Small fat-containing umbilical hernia. Reviewed, dictated and finalized at [facility]. M TRAP MAN Impression: No distinct etiology for rectal bleeding identified. Small gallstone. Small fat-containing umbilical hernia.
[2024-08-29 07:13] VITALS: BP 136/83; PULSE 79; RESP 18; TEMP 36.7; O2SAT 100
[2024-08-29 07:48] LABS: Basophils Absolute Auto 0.1 K/mm3 (0.0-0.1); Basophils Percent Auto 1.2 % (0.2-1.2); Eosinophils Absolute Auto 0.3 K/mm3 (0-0.3); Eosinophils Percent Auto 5.9 % (0-4.4); Hematocrit 47.8 % (42.0-52.0); Hemoglobin 16.5 g/dL (14.0-18.0); Immature Granulocyte Absolute 0.07 K/mm3 (0.00-0.031); Immature Granulocyte Percent A 1.2 % (0-0.5); Mean Corpuscular HGB Conc 34.5 g/dl (32-36); Mean Corpuscular Volume 92.6 fl (80-100); Mean Platelet Volume 9.2 fl (7.4-10.4); Monocytes Absolute Auto 0.7 K/mm3 (0.1-0.6); Neutrophils Absolute Auto 2.7 K/mm3 (1.3-6.7); Neutrophils Percent Auto 46.7 % (45.5-73.1); Platelet Count Result 257 k/mm3 (150-375); Red Blood Count 5.16 M/mm3 (4.6-6.20); Red Cell Distribution Width 12.4 % (11.5-14.5); White Blood Count 5.8 K/mm3 (4.5-10.0)
[2024-08-29 07:53] LABS: Alanine Aminotransferase 31 U/L (6-50); Albumin Level 4.4 g/dL (3.5-5.1); Alkaline Phosphatase 84 U/L (38-126); Anion Gap 5 mmol/L (4-12); Aspartate Amino Transferase 37 U/L (17-59); Bilirubin,Total 0.8 mg/dL (0.2-1.3); Blood Urea Nitrogen 13 mg/dL (9-20); Calcium 8.8 mg/dL (8.4-10.2); Carbon Dioxide 29 mmol/L (22-30); Chloride 106 mmol/L (98-107); Estimated CRCL calculation 73 ml/min; Estimated Glomerular Filt Rate > 60; Glucose 101 mg/dL (65-110); Lipase 93 U/L (23-300); Magnesium 2.1 mg/dL (1.6-2.3); Potassium 3.9 mmol/L (3.4-5.0); Sodium 140 mmol/L (137-145)
--- NOTE | 2024-08-29 07:53 | ED_ITS ---
HPI - GI Bleed General Chief complaint: GI Bleed Stated complaint: rectal bleeding Time Seen by Provider: 08/29/24 07:11 History of Present Illness HPI Narrative: Patient with h/o hemorrhoids, normal colonoscopy 8 yr ago p/w BRBPR; noticed when he wipes, had some recently but much more this morning. No n/v, abd pain. Related Data Home Medications ?Medication ?Instructions ?Recorded ?Confirmed ?Last Taken ?Type lamotrigine 200 mg tablet 400 mg PO BID 07/16/21 11/12/21 07/16/21 History 06 atorvastatin 20 mg tablet mg 10/16/22 Unknown History Allergies Allergy/AdvReac Type Severity Reaction Status Date / Time No Known Allergies Allergy Verified 08/29/24 07:19 Review of Systems 2 Review of Systems: All systems reviewed & are unremarkable except as noted in HPI and below PMFSH Past Medical History Medical History Seizures Family History Family History Other Family history of alcoholism Family history of arthritis Hypertension Social History Social History Alcohol intake: never Exam 2 Narrative: EXAMINATION OF ORGAN SYSTEMS/BODY AREAS: Constitutional: Vital signs per nursing GENERAL:[No acute distress, non-toxic appearing.] HEAD: Normal with no signs of head trauma. EYES: EOMI, conjunctiva normal ENT: Hearing grossly intact LUNGS: Nonlabored breathing. HEART: [Regular rate and rhythm] ABD: [Soft], [nontender to palpation] RECTAL: Several external hemorrhoids. Decent amount of blood on rectal exam; no significant tenderness EXT: Normal range of motion SKIN: [No rashes or lesions.] NEURO: [Alert and oriented x 3. No gross focal sensory or strength deficits.] PSYCH: Normal affect Course Vital Signs Vital signs: Vital Signs Temperature 98.1 F 08/29/24 07:13 Pulse Rate 79 08/29/24 07:13 Respiratory Rate 18 08/29/24 07:13 Blood Pressure 136/83 08/29/24 07:13 Pulse Oximetry 100 08/29/24 07:13 Oxygen Delivery Room Air 08/29/24 07:13 Temperature 98.1 F 08/29/24 07:13 Pulse Rate 79 08/29/24 07:13 Respiratory Rate 18 08/29/24 07:13 Blood Pressure 136/83 08/29/24 07:13 Pulse Oximetry 100 08/29/24 07:13 Oxygen Delivery Room Air 08/29/24 07:13 MDM - GI Bleed MDM Narrative Medical decision making narrative: patient presenting with lower GI bleed, bright red blood, I can see that on exam also; No tenderness rectally, he does have some hemorrhoids, no active hemorrhage. hemoglobin thankfully stable here, CT abdomen/ pelvis does not show any obvious significant active bleeding which is reassuring. Patient has been observed here for several hours and has not had any further hemorrhaging. Discussed with GI Dr. Brothers who is agreeable to seeing patient in the clinic as soon as possible, return precautions are discussed with the patient. Patient agreeable to the plan. Lab Data 08/29/24 07:34 08/29/24 07:34 Labs: Lab Results 08/29/24 08/29/24 Range/Units 07:34 07:34 WBC 5.8 (4.5-10.0) K/mm3 RBC 5.16 (4.6-6.20) M/mm3 Hgb 16.5 (14.0-18.0) g/dL Hct 47.8 (42.0-52.0) % MCV 92.6 (80-100) fl MCH 32.0 (26-34) pg MCHC 34.5 (32-36) g/dl RDW 12.4 (11.5-14.5) % Plt Count 257 (150-375) k/mm3 MPV 9.2 (7.4-10.4) fl Immature Gran % (Auto) 1.2 H (0-0.5) % Neut % (Auto) 46.7 (45.5-73.1) % Lymph % (Auto) 33.0 (18.3-44.2) % Clayton % (Auto) 12.0 H (2.6-8.5) % Eos % (Auto) 5.9 H (0-4.4) % Baso % (Auto) 1.2 (0.2-1.2) % Lymph # (Auto) 1.90 (0.9-3.2) K/mm3 Clayton # (Auto) 0.7 H (0.1-0.6) K/mm3 Eos # (Auto) 0.3 (0-0.3) K/mm3 Baso # (Auto) 0.1 (0.0-0.1) K/mm3 Abs Immat Gran (auto) 0.07 H (0.00-0.031) K/mm3 Absolute Neuts (auto) 2.7 (1.3-6.7) K/mm3 Absolute Nucleated RBC 0.000 (0.0-0.012) K/mm3 Nucleated RBC % 0.0 (0.0-0.2) % Sodium 140 (137-145) mmol/L Potassium 3.9 (3.4-5.0) mmol/L Chloride 106 (98-107) mmol/L Carbon Dioxide 29 (22-30) mmol/L Anion Gap 5 (4-12) mmol/L BUN 13 D (9-20) mg/dL Creatinine 1.10 (0.7-1.3) mg/dL Estim Creat Clear Calc 73 ml/min Estimated GFR > 60 (59 - ) Glucose 101 (65-110) mg/dL Calcium 8.8 (8.4-10.2) mg/dL Magnesium 2.1 (1.6-2.3) mg/dL Total Bilirubin 0.8 (0.2-1.3) mg/dL AST 37 (17-59) U/L ALT 31 (6-50) U/L Alkaline Phosphatase 84 (38-126) U/L Total Protein 7.0 (6.3-8.2) g/dL Albumin 4.4 (3.5-5.1) g/dL Lipase 93 Cancelled (23-300) U/L Discharge Plan Discharge Clinical Impression: BRBPR (bright red blood per rectum) Patient Disposition: Home, Self-Care Condition: Stable Instructions: Rectal Bleeding (ED) Additional Instructions: Please follow-up with the GI doctor, if you start having heavier bleeding, or if the bleeding does not stop, please come back to the emergency room. Patient Language: Kosovan Prescriptions: No Action lamotrigine 200 mg tablet 400 mg PO BID atorvastatin 20 mg tablet amoxicillin-pot clavulanate 875-125 mg tablet 1 tablet PO Q12H 7 Days Qty: 14 0RF clindamycin HCl 300 mg capsule 300 mg PO Q8H 7 Days Qty: 21 0RF cefdinir 300 mg capsule 300 mg PO Q12H Qty: 14 0RF ciprofloxacin HCl 0.3 % drops See Rx Instructions .ROUTE .COMPLEX Qty: 10 0RF Rx Instructions: put 1-2 drps in affected eye(s) every 2hr up to 8 times/day x2days; then 4 times/day x5days Follow-up/Referrals: Joaquin Aguiar M.D. [Primary Care Provider] - Derrick Willis MD [Physician] - 2 Days
[2024-08-29 09:47] VITALS: BP 137/86; PULSE 80; RESP 18; O2SAT 99
== END 2024-08-29 09:47 | disposition home or self-care (01) ==
PROVIDERS: Emergency Provider Emergency Medicine; PCP Family Medicine
DX: K62.5 Hemorrhage of anus and rectum (principal); K42.9 Umbilical hernia without obstruction or gangrene
CPT/HCPCS: 36415; 74177; 80053; 83690; 83735; 85025; 99284; Q9967

== ENCOUNTER 2025-05-10 17:04 | Emergency (ER) | payer OTHER, SELFPAY ==
[2025-05-10 17:04] VITALS: BP 122/78; PULSE 97; RESP 20; TEMP 37.2; O2SAT 98
--- NOTE | 2025-05-10 17:16 | ED.ANXIETY ---
HPI - Anxiety General Stated Complaint: med error Time Seen by Provider: 05/10/25 17:15 Source: patient Mode of arrival: ambulatory Limitations: no limitations History of Present Illness HPI narrative: This is a 60-year-old male with history of seizure disorder that took an extra dose of Lamictal and has been concerned and mildly anxious otherwise no symptoms no headache no blurry vision no nausea vomiting no abdominal pain no chest pain no tachycardia no flank pain no dysuria no fever chills. complaint: anxiety Onset (ago): hour(s) Severity: mild Related Data Home Medications ?Medication ?Instructions ?Recorded ?Confirmed ?Last Taken ?Type lamotrigine 200 mg tablet 400 mg PO BID 07/16/21 02/03/25 07/16/21 History 0600 atorvastatin 20 mg tablet mg 10/16/22 02/03/25 Unknown History Allergies Allergy/AdvReac Type Severity Reaction Status Date / Time No Known Allergies Allergy Verified 02/03/25 10:12 Review of Systems Review of Systems: All systems reviewed & are unremarkable except as noted in HPI and below PMFSH Past Medical History Medical History Trigger thumb of left hand Seizures Family History Family History Other Family history of alcoholism Family history of arthritis Hypertension Social History Social History Smoking status: Never smoker Alcohol intake: never Exam Const: General: healthy appearing Nutritional Appearance: well nourished Orientation/consciousness: patient oriented x3 Limitations: no limitations HENMT: Head: normal to inspection Eyes: Conjunctivae: conjunctivae normal Pupils: Equal, round and reactive pupils present EOM: EOMs intact bilaterally Direct Ophthalmoscopy: no photophobia Neck: Neck: normal visual inspection, no lymphadenopathy and no meningeal signs Chest: Chest palpation & inspection: normal inspection of the chest Resp: Effort & Inspection: normal respiratory effort Auscultation: clear to auscultation bilaterally Cardio: Rate: regular rate Rhythm: regular rhythm GI: GI Palp: Yes Soft to palpation Auscultation: normal bowel sounds : General: Yes bladder normal to palpation Urinary Catheter: Urinary Catheter: patent and draining Back/Spine/Pelvis: Back: no CVA tenderness Skin: General skin exam: normal color Rashes: no rashes Wounds: no wounds Neuro: General: patient oriented x3, moves all extremities, no meningeal signs and no focal motor deficits Extrem: General: normal to inspection Psych: Affect: Anxious affect present Course Course Emergency Course: Patient took an extra dose of Lamictal otherwise no symptoms patient is anxious about taking the extra dose given patient reassurance and advised that if he does have any symptoms that he should always return to the emergency department for further evaluation. Critical Care Time Critical Care Time Critical Care Time: No Discharge Plan Discharge Clinical Impression: Seizures Patient Disposition: Home Condition: Stable Instructions: Antibiotic Form, Epilepsy (ED) Additional Instructions: advised patient to follow up primary if symptoms should develop to go to the Emergency nearest emergency department. Patient Language: Georgian Prescriptions: No Action lamotrigine 200 mg tablet 400 mg PO BID hydrocodone-acetaminophen 5-325 mg tablet 1 tablet PO Q4H PRN (Reason: pain) Qty: 20 0RF atorvastatin 20 mg tablet amoxicillin-pot clavulanate 875-125 mg tablet 1 tablet PO Q12H 7 Days Qty: 14 0RF cefdinir 300 mg capsule 300 mg PO Q12H Qty: 14 0RF Follow-up/Referrals: Joaquin Aguiar M.D. [Primary Care Provider, Family Practice] Time of Disposition: 17:19
--- OUTSIDE RECORDS SUMMARY | 2025-05-10 17:17 | XMS_ITS | Encounter Summary ---
Author Organization [facility] Address [address] [place] [id number] Care Team Providers Care Wall Worker Name Role Phone Joaquin Aguiar MD Primary Care Provider [phone] Encounter Details Date Type Department Care Team (Late st Contact Info) Description 11/17/2022 E-Blink Message Enc [facility] [address] [address] Bon Cuevas MD [address] [place] [id number] Visit Follow Up Social History Tobacco Use Types Packs/Day Years Used Date Smoking Tobacco: Never Smokeless Tobacco: Never Alcohol Use Standard Drinks/Week Comments Not Currently 0 (1 standard drink = 0.6 oz pur e alcohol) STOPPED USE DUE TO SEIZURES Sex and Gender Information Value Date Recorded Sex Assigned at Male 10/28/2019 1:04 PM TEAM [employer] Legal Sex Male 2:43 AM CDT Gender Identity Male 10/28/2019 1:04 PM TEAM [employer] Sexual Orientation Not on file COVID-19 Exposure Response Date Recorded In the last 10 days, have yo u been in contact with someone who was confirmed or suspected to have Coronavirus/COVID-19? No / Unsure 11/17/2022 3:07 PM TEAM [employer] documented as of this encounter Plan of Treatment Not on file documented as of this encounter Visit Diagnoses Not on filedocumented in this encounter Care Teams Wall Worker Relationship Specialty Start Date End Date Joaquin Aguiar MD [address] [place] [address] [place] [address] PCP - General FAMILY PRACTICE 7/30/19 documented as of this encounter
--- OUTSIDE RECORDS SUMMARY | 2025-05-10 17:17 | XMS_ITS | Encounter Summary ---
Author Organization [facility] Address [address] [place] [address] Care Team Providers Care Business Services Sales Representative Name Role Phone Joaquin Aguiar MD Primary Care Provider [phone] Encounter Details Date Type Department Care Team (Late st Contact Info) Description 05/30/2022 IfOnly Message Enc [facility] [address] [address] Moraima Rider, [facility] [address] [place], [place] [id number] Visit Follow Up Social History Tobacco Use Types Packs/Day Years Used Date Smoking Tobacco: Never Smokeless Tobacco: Never Alcohol Use Standard Drinks/Week Comments Not Currently 0 (1 standard drink = 0.6 oz pur e alcohol) STOPPED USE DUE TO SEIZURES Sex and Gender Information Value Date Recorded Sex Assigned at Male 10/28/2019 1:04 PM PER DIEM PHYSICAL THERAPIST ASSISTANT Legal Sex Male 2:43 AM CDT Gender Identity Male 10/28/2019 1:04 PM PER DIEM PHYSICAL THERAPIST ASSISTANT Sexual Orientation Not on file COVID-19 Exposure Response Date Recorded In the last 10 days, have yo u been in contact with someone who was confirmed or suspected to have Coronavirus/COVID-19? No / Unsure 05/30/2022 9:49 AM CDT documented as of this encounter Plan of Treatment Not on file documented as of this encounter Visit Diagnoses Not on filedocumented in this encounter Care Teams Business Services Sales Representative Relationship Specialty Start Date End Date Joaquin Aguiar MD [address] [place] [id number] PCP - General FAMILY PRACTICE 04/16/19 documented as of this encounter
--- OUTSIDE RECORDS SUMMARY | 2025-05-10 17:17 | XMS_ITS | Encounter Summary ---
Author Organization [facility] Address [address] [place] [address] Care Team Providers Care Supervisor Dairy Sanitation Name Role Phone Joaquin Aguiar MD Primary Care Provider [phone] Encounter Details Date Type Department Care Team ([facility] st Contact Info) Description 02/23/2019 Abstract SFL CONVERSION [address] [place] [id number] , Generic Conversion, Social History Tobacco Use Types Packs/Day Years Used Date Smoking Tobacco: Never Sex and Gender Information Value Date Recorded Sex Assigned at Male 10/28/2019 1:04 PM HOG TRADER Legal Sex Male 2:43 AM CDT Gender Identity Male 10/28/2019 1:04 PM HOG TRADER Sexual Orientation Not on file documented as of this encounter Plan of Treatment Not on file documented as of this encounter Visit Diagnoses Not on filedocumented in this encounter Care Teams Supervisor Dairy Sanitation Relationship Specialty Start Date End Date Joaquin Aguiar MD [address] [place] [address] PCP - General FAMILY PRACTICE 04/16/19 documented as of this encounter
--- OUTSIDE RECORDS SUMMARY | 2025-05-10 17:17 | XMS_ITS | Clinical Summary ---
Author Organization [facility] Address [address] [place] [address] Phone Care Team Providers Care Painting And Coating Worker Name Role Phone Joaquin Aguiar MD Primary Care Provider [phone] Medications lamoTRIgine (LaMICtal) 200 MG Tablet Take 400 mg by mouth 2 times daily. Active LORazepam (ATIVAN) 0.5 MG Tablet Take 0.5 mg by mouth every 6 hours as needed. Active ATORVASTATIN CALCIUM PO Take by mouth. Active Active Problems Problem Noted Date Diagnosed Date Moderate recurrent major depression 03/12/2025 Sleep apnea Encounters Date Type Department Care Team Description 03/12/2025 9:30 AM CDT Outpatient Clinic Visit [facility] [address] [place] [address] Gerardo Seaman, TRUST MANAGER Moderate recurrent major depression (HCC) (Primary Dx) Discharge Disposition: Discharged to home or Selfcare 03/12/2025 Travel from Last 3 Months Family History Medical History Relation Name Comments Depression Mother Relation Name Status Comments Mother Social History Tobacco Use Types Packs/Day Years Used Date Smoking Tobacco: Never Smokeless Tobacco: Never Tobacco Cessation:Counseling Given: Not Answered Alcohol Use Standard Drinks/Week Comments Not Currently 0 (1 standard drink = 0.6 oz pure alcohol) has not draink since 1999 when developed seizure disorder PHQ-2 Answer Date Recorded Total Score - Questions 1-9 13 02/17 Sexually Active Control Partners Comments Not Currently Female Sex and Gender Information Value Date Recorded Sex Assigned at Not on file Legal Sex Male 11:48 PM CDT Gender Identity Not on file Sexual Orientation Not on file Plan of Treatment Health Maintenance Due Date Last Done Comments Hepatitis C Virus (HCV) Screening 1966 Hepatitis B Immunization (1 of 3 - 19+ 3-dose series) 1985 Cologuard 2011 Colonoscopy 2011 Colorectal Cancer Screening 2011 Immunochemical Fecal Occult Blood 2011 Pneumococcal Immunization (5 0+ years) (1 of 1 - PCV) 2016 Zoster Immunization (1 of 2) 2016 PSA Discussion 2021 SARS-COV-2 Immunization ( season) 2024 08/27/2021, 01/01/2021, 12/04/2020 Influenza Immunization (#1) 05/19/202507/19, 06/30/2014, 07/02/2013 Respiratory Syncytial Virus (RSV) Immunization (Adult) (1 - 1-dose 75+ series) 2041 TdaP Immunization Completed 09/27/2021, 05/30/2019 Human Papillomavirus (HPV) Immunization Aged Out No longer eligible b ased on patient's age to complete this topic Meningococcal Immunization (ACWY) Aged Out No longer eligible b ased on patient's age to complete this topic Rotavirus Immunization Aged Out No lo nger eligible based on patient's age to complete this topic Goals Goal Patient Goal Type Associated Problems Recent Progress Patient-Stated? Author Behavioral Health Behavioral Health Yes Gerardo Seaman, TRUST MANAGER Note: I just want to feel better with my depression, have more energy and notivation Insurance [facility] Care Teams Painting And Coating Worker Relationship Specialty Start Date End Date Joaquin Aguiar MD [address] [address] PCP - General Family Medicine 03/12/25
--- OUTSIDE RECORDS SUMMARY | 2025-05-10 17:17 | XMS_ITS | Clinical Summary ---
Author Organization [facility] Address [address] [place] [address] Care Team Providers Care Drywall Foreman Name Role Phone Joaquin Aguiar MD Primary Care Provider [phone] Joaquin Aguiar MD Unavailable + Joaquin Aguiar MD Unavailable [phone] Allergies No known active allergies Medications atorvastatin (LIPITOR) 20 mg tablet 2 Active acetaminophen-c affeine 500-65 mg tablet Take 500 mg by mouth as needed Active aspirin 81 mg enteric coated tablet Take 1 tablet (81 mg total) by mouth daily Active meloxicam (MOBIC) 15 mg tablet Take 1 tablet (15 mg total) by mouth daily 30 tablet 1 3 Active Additional Information Patient not taking.Reported on 03/30/2023 azelastine (ASTELIN) 137 mcg (0.1 %) nasal spray Administer 1 spray into each nostril 2 (two) times a day Use in each nostril as directed 30 mL 3 4 Active fluticasone propionate (FLONASE) 50 mcg/actuation nasal spray Administer 2 sprays into each nostril daily 48 mL 3 4 Active LORazepam (ATIVAN) 1 mg tablet 4 Active lamoTRIgine (LaMICtal) 200 mg tabletIndicatio ns:Complex-Part ial Epilepsy 1.5 tablet in the morning and 2 tablet at night 360 tablet 3 4 Active Active Problems Patient Care Coordination No te Formatting of this note migh t be different from the original. Sinus drainage Problem Noted Date Diagnosed Date Chronic cough 10/23/2023 Transient alteration of awareness 10/18/2022 Viral illness 10/18/2022 Aseptic meningitis 10/18/2022 NAHUN (acute kidney injury) 10/17/2022 Transient diplopia 08/03/2021 Assessment & Plan (09/13/2021 3:50 PM BOLT MAKER): Patient has undergone cerebrovascular and cardiovascular testing which is unrevealing save for elevation in cholesterol. He will be following up with his PCP for management of his lipids. He will continue on aspirin therapy at this time for cerebrovascular prophylaxis. He has no demonstrated hypertension. Assessment & Plan (08/03/2021 3:47 PM BOLT MAKER): Patient experienced a 30 minutes episode of painless binocular skew diplopia suspect for vertebral basilar territory TIA. I will start patient on aspirin 81 mg daily pending further investigations to include MRI brain, MRA brain, echocardiogram, 24 hour Holter, lipid profile. Patient has been instructed if he has any additional neurologic deficits developed prior to follow-up he should immediately present to the nearest emergency room for evaluation. He will follow-up with me in the office upon completion of testing. Memory loss 11/12/2020 Assessment & Plan (02/22/2021 9:02 AM CDT): Patient has undergone laboratory assessment which is unrevealing for symptomatic reasons of memory loss. However his EEG abnormalities may account for some of his memory complaints. I will add levetiracetam to his lamotrigine regiment. See him back in 3 months time. In addition I will be following up with his PCP for consideration of a sleep medicine referral for possible polysomnogram. Assessment & Plan (11/12/2020 2:54 PM BOLT MAKER): Patient has subjective memory loss. Objectively is neurologic examination and cognitive examination looks normal today. I will check an EEG, TSH, T4, B12, treponemal antibody survey to look into any medically addressable causes for his subjective memory impairment. One additional question was daytime sleepiness which he does admit to. He says he does have a history of snoring and has attempted to use CPAP in past. He denies having had a recent polysomnogram to see if he still continues to have obstructive sleep apnea as a potential etiology. If the above-mentioned testing is normal then he may benefit from consideration of a polysomnogram for further evaluation. Partial symptomatic epilepsy with complex partial seizures, not intractable, without status epilepticus 11/12/2020 Assessment & Plan (09/13/2021 3:49 PM BOLT MAKER): Patient continues on lamotrigine 400 mg b.i.d. at this time with no clinical seizure events or lapses of awareness. EEG is improved but still demonstrates occasional epileptiform changes. He will continue on lamotrigine 400 mg b.i.d. at this time and medication has been renewed. He wishes to pursue alternate neurologic care given my pending custodial and patient has been given names of several neurologist both at [facility] as well as in [place] near his home. Assessment & Plan (08/03/2021 3:48 PM BOLT MAKER): Patient continues on lamotrigine 400 mg b.i.d. at this time with no known clinical seizures. I will obtain a follow-up EEG with hyperventilation photic stimulation on this regiment to assess his prior abnormal EEG discharges. Assessment & Plan (05/14/2021 4:13 PM CDT): I discussed with patient the given his adverse effects with co therapy I think his best bet would be to optimize monotherapy and he is agree in agreement. I will increase his lamotrigine to 400 mg b.i.d.. I would like him to have a follow-up EEG on this dosing regimen in 6 months with follow-up thereafter. He will follow-up in neurology clinic in 6 months. Assessment & Plan (02/22/2021 9:01 AM CDT): Patient's history of complex partial seizures and has been using lamotrigine 300 mg b.i.d.. Despite this he still having frequent left temporal sharp forms demonstrated on EEG. I will add levetiracetam 500 mg b.i.d. to his lamotrigine regiment. I will schedule him to have a follow-up EEG in 3 months time. If he has any clinical seizures in the interim he is to let me know. See him back in the office in 3 months for reassessment. Assessment & Plan (11/12/2020 2:53 PM BOLT MAKER): Patient has a history of complex partial seizure secondary generalization. Prior medical records have been reviewed. He currently is taking lamotrigine 300 mg b.i.d. with good symptomatic relief with occasional supplement of lorazepam on a p.r.n. basis for any aura. He is concerned about having subjective memory difficulties and I will obtain TSH, T4, B12, treponemal antibody survey in addition to EEG to exclude any potentially treatable etiologies for this. I will see him back in the office thereafter. Tremor 11/12/2020 Assessment & Plan (02/22/2021 9:03 AM CDT): Laboratory assessment of tremors been unrevealing. It may be related to his lamotrigine. Because he continues to have some intermittent tremors by his account, I will defer in further increasing his lamotrigine in add levetiracetam 500 mg b.i.d. to his 300 mg b.i.d. lamotrigine dosing regimen. Assessment & Plan (11/12/2020 2:55 PM BOLT MAKER): Patient has a fine intermittent tremor in both upper extremities consistent with intention tremor. While this may be the sequelae to lamotrigine usage, I will check TSH and T4 to exclude hyperthyroidism as an alternate etiology. Abnormal liver function test 10/25/2018 Closed fracture of nasal bones Closed fracture of frontal sinus Nasal laceration, initial encounter Immunizations Immunization Administration Dates Next Due Tdap 05/30/2019 Surgical History Surgery Date Site/Laterality Comments WRIST FRACTURE SURGERY KNEE ARTHROSCOPY SHOULDER SURGERY Medical History Medical History Date Comments Hx Other Medical fx wrist Hx Other Medical fx shoulder Seizure disorder (HCC) Seizure d isorder Gastroesophageal reflux disease GERD Allergic rhinitis Seizures (HCC) Depression NAHUN (acute kidney injury) 10/17/2022 Family History Medical History Relation Name Comments No Known Problems Brother 1 No Known Problems Brother 2 Brain cancer Father Lung cancer Father Arthritis Mother Family history of arthritis - (Added by TW Conv) Lupus Mother Family history of systemic lupus erythematosus - (Added by TW Conv) Hypertension Other 1 Family history of Hypertension; Osteoarthritis Other 2 Family histor y of Osteoarthritis; Stroke Other 3 Family history of Stroke; Relation Name Status Comments Brother 1 Alive Brother 2 Alive Father Mother Alive Other 1 Other 2 Other 3 Social History Tobacco Use Types Packs/Day Years Used Date Smoking Tobacco: Never Smokeless Tobacco: Never Tobacco Cessation:Counseling Given: Not Answered Alcohol Use Standard Drinks/Week Comments Not Currently 0 (1 standard drink = 0.6 oz pur e alcohol) Personal Safety Answer Date Recorded Getting School Help Needed Denies 08/29 Sex and Gender Information Value Date Recorded Sex Assigned at Not on file Legal Sex Male 1:22 PM BOLT MAKER Gender Identity Not on file Sexual Orientation Not on file Obstetrics History Last Filed Vital Signs Vital Sign Reading Time Taken Comments Blood Pressure 110/62 03/26/2024 3:33 PM CDT Pulse 86 10/23/2023 9:49 AM BOLT MAKER Temperature 36.8 C (98.3 F) 10/23/2023 9:49 AM BOLT MAKER Respiratory Rate 18 10/23/2023 9:49 AM BOLT MAKER Oxygen Saturation 99% 10/23/2023 9:49 AM BOLT MAKER Inhaled Oxygen Concentration - - Weight 97.5 kg (215 lb) 03/26/2024 3:33 PM CDT Height 185.4 cm (6' 1) 03/26/2024 3:33 PM CDT Body Mass Index 28.37 03/26/2024 3:33 PM CDT Plan of Treatment Health Maintenance Due Date Last Done Comments Colon Cancer Screening-Colonoscopy 1966 Depression Screening 1966 Prostate Cancer Screening-PSA 1966 Hepatitis B Screening 1984 Regular Well Visit/Exam 18-64 1984 Pneumococcal vaccine <65 (1 of 2 - PCV) 1985 Zoster Vaccine (1 of 2) 2016 Influenza Vaccine (#1) 2025 07/30/2018 DTaP/Tdap/Td Vaccine (2 - Td or Tdap) 05/30/202908/2019 Hepatitis C Screening Completed 09/05/2013 Procedures Procedure Name Priority Date/Time Associated Diagnosis Comments SERUM HEPATITIS C AB Routine 09/05/2013 4:21 AM BOLT MAKER from Last 3 Months or Most Recently Relevant to Health Maintenance Results * Serum Hepatitis C ab (09/05/2013 4:21 AM BOLT MAKER) HCV ab Negative NEG HISTORICAL RESULTS Comment: Interpretive Data If confirmation is required, call Laboratory Customer Service to request sample to be sent to [facility] for Hepatitis C Virus (HCV) RNA Detection and Quantitation by Real-Time Reverse Resident Services Director-PCR (RT-PCR). Current interpretive data was last revised on 2011 Serum 09/05/2013 4:21 AM BOLT MAKER Narrative HISTORICAL RESULTS - 09/06/2013 4:40 AM BOLT MAKER Test performed at [facility], [address] [facility],, [place], [place], [facility], [address]. Brandon Schilling LAB BLOOD ORDERABLES Final Result Performing Organization Address City/State/[facility] Co de Phone Number HISTORICAL RESULTS from Last 3 Months or Most Recently Relevant to Health Maintenance Insurance [facility] CHOICE PLUS [facility] HMO/PPO Address: [facility] [address] [place] [address] [facility] HMO/PPO Address: [place] [address] [address] [facility] HMO/PPO Address: [place] [address] Advance Directives For more information, please contact: [phone] * Full Code (Latest Code Status on File) Date Activated Date Inactivated Comments 05/31/2019 10:52 AM 06/01/2019 9:53 PM Care Teams Drywall Foreman Relationship Specialty Start Date End Date Joaquin Aguiar MD [address] [place] [address] PCP - General 12/31/20 Joaquin Aguiar MD [address] [place] [address] Family Medicine 12/31/20 [place] [address] [place] [address] [place] [address] 05/30/19
--- OUTSIDE RECORDS SUMMARY | 2025-05-10 17:17 | XMS_ITS | Clinical Summary ---
Author Organization [facility] Address [address] [place] [address] Care Team Providers Care Line Service Supervisor Name Role Phone Joaquin Aguiar MD Primary Care Provider [phone] Source Comments [facility],non-owned Affiliates and Associated Physician Practices is amultiple site organization consisting of ambulatory clinics and hospital sitesin [place] and [place]. This disclosure is being madepursuant to the Care Everywhere program and may not contain all information available regarding this patient. Last updated 18.[facility] [employer] Social History Tobacco Use Types Packs/Day Years Used Date Smoking Tobacco: Never Assessed Sex and Gender Information Value Date Recorded Sex Assigned at Not on file Legal Sex Male 7:24 AM CTE TEACHER Gender Identity Not on file Sexual Orientation Not on file Last Filed Vital Signs Vital Sign Reading Time Taken Comments Blood Pressure 124/77 08/31/2024 9:00 AM CTE TEACHER Pulse 77 08/31/2024 9:00 AM CTE TEACHER Temperature 36.4 C (97.5 F) 08/31/2024 7:25 AM CTE TEACHER Respiratory Rate 20 08/31/2024 8:11 AM CTE TEACHER Oxygen Saturation 99% 08/31/2024 9:00 AM CTE TEACHER Inhaled Oxygen Concentration - - Weight 99.8 kg (220 lb) 08/31/2024 7:25 AM CTE TEACHER Height 185.4 cm (6' 1) 08/31/2024 7:25 AM CTE TEACHER Body Mass Index 29.03 08/31/2024 7:25 AM CTE TEACHER Plan of Treatment Health Maintenance Due Date Last Done Comments COLOGUARD (AGES 45-75) - COL ON CA SCREENING 1966 COLON MONITORING 1966 COLONOSCOPY - COLON CA SCREENING 1966 CT COLONOGRAPHY - COLON CA SCREENING 1966 Colorectal Cancer Screening 1966 FIT - COLON CA SCREENING 1966 FLEX SIG - COLON CA SCREENING 1966 LIPID TESTING 1966 HIV SCREENING 1981 HEPATITIS C SCREENING 03/28/1984 DTAP/TDAP/TD VACCINES (1 - Tdap) 1985 HEPATITIS B VACCINE (1 of 3 - 19+ 3-dose series) 1985 PNEUMOCOCCAL VACCINE 50+ (1 of 1 - PCV) 2016 ZOSTER VACCINE (1 of 2) 2016 COVID-19 VACCINE ( - 2023-2 5 season) 2024 DEPRESSION SCREENING 09/18/2024 INFLUENZA VACCINE (#1) 2025 HIB VACCINE Aged Out No longer eligi ble based on patient's age to complete this topic HPV VACCINE Aged Out No longer eligi ble based on patient's age to complete this topic MENINGOCOCCAL (Group B) VACC INE SHARED DECISION-MAKING Aged Out No longer eligibl e based on patient's age to complete this topic MENINGOCOCCAL GROUPS A/C/Y/W VACCINE Aged Out No longer eligible b ased on patient's age to complete this topic Insurance Care Teams Line Service Supervisor Relationship Specialty Start Date End Date Joaquin Aguiar MD [address] [place] [address] PCP - General Family Medicine 08/31/24
--- OUTSIDE RECORDS SUMMARY | 2025-05-10 17:29 | XMS_ITS | Clinical Summary ---
Author Organization [facility] Address [address] [place] [address] Care Team Providers Care Radio Personality Name Role Phone Joaquin Aguiar MD Primary Care Provider Allergies Active Allergy Reactions Criticality Noted Date Comments Seasonal Unknown 04/18/2017 Medications lamotrigine 100 MG tablet Take 3 tablets by mouth 2 (two) times a day. Active lorazepam 1 MG tablet Take 1 mg by mouth as needed. Active Multiple Vitamins-Minera ls (MULTI FOR HIM OR) Active atorvastatin (LIPITOR) 20 MG tablet 2 Active aspirin EC (ECOTRIN) 81 MG tablet Take 81 mg by mouth daily. Active aspirin-acetami nophen-caffeine (EXCEDRIN MIGRAINE) 250-250-65 MG tablet Take 1 tablet by mouth every 6 (six) hours as needed for Pain. Active methylPREDNISol one, ROXANA, (MEDROL DOSEPAK) 4 MG tabletIndicatio ns:Orthopedic aftercare,Other tear of medial meniscus of left knee as current injury, subsequent encounter 4 mg Oral Tablet Therapy Pack. Follow package directions 1 each 2 Active meloxicam (MOBIC) 15 MG tabletIndicatio ns:Orthopedic aftercare,Other tear of medial meniscus of left knee as current injury, subsequent encounter Take 1 tablet (15 mg total) by mouth daily. 30 tablet 2 2 Active Active Problems Problem Noted Date Diagnosed Date Other tear of medial meniscu s of left knee as current injury, subsequent encounter 06/13/2022 Acute medial meniscus tear, left, initial encoun ter 05/30/2022 Seizures (CMS/HCC HHS/HCC) 10/29/2019 Overview (10/29/2019): Hx of seizures since age 34. Patient is taking lamictal and lorazepam, and seeing Neurologist in [place]. Chest wall mass 10/29/2019 Overview (10/29/2019): Added automatically from request for surgery [id number] Asthma (HHS/HCC) 04/28/2014 HEBERT (obstructive sleep apnea) 04/28/2014 Osteopenia of spine Hyperlipidemia Chronic major depressive disorder Resolved Problems Problem Noted Date Diagnosed Date Resolved Date Forearm mass, right 04/18/2017 10/28/19 20 Mass of upper extremity, left 04/18/2017 10/28/2019 Arm pain 04/13/2017 10/28/2019 Allergic rhinitis 10/06/2015 10/28/2019 Encounter for preventive health examination 04/28/2014 10/28/2019 Sinusitis 04/28/2014 10/28/2019 Family History Medical History Relation Comments Kidney Stones Father Metastatic small cell lung to brain Father Seizures Father due to head inju ry MVA Maternal Grandfather Cancer Maternal Grandmother CERVICAL Colon Cancer Maternal Grandmother TIA Maternal Grandmother Hyperlipidemia Mother Hypertension Mother Rheumatoid Arthritis Mother knife wound Paternal Grandfather Relation Status Comments Father Maternal Grandfather Maternal Grandmother Mother Alive Paternal Grandfather Social History Tobacco Use Types Packs/Day Years Used Date Smoking Tobacco: Never Smokeless Tobacco: Never Alcohol Use Standard Drinks/Week Comments Not Currently 0 (1 standard drink = 0.6 oz pur e alcohol) STOPPED USE DUE TO SEIZURES Sex and Gender Information Value Date Recorded Sex Assigned at Male 10/28/2019 1:04 PM INTERMODAL OWNER OPERATOR TRUCK DRIVER Legal Sex Male 2:43 AM CDT Gender Identity Male 10/28/2019 1:04 PM INTERMODAL OWNER OPERATOR TRUCK DRIVER Sexual Orientation Not on file Last Filed Vital Signs Vital Sign Reading Time Taken Comments Blood Pressure 130/71 06/05/2023 9:30 AM CDT Pulse 97 06/05/2023 8:22 AM CDT Temperature 36.8 C (98.2 F) 06/05/2023 8:22 AM CDT Respiratory Rate 18 06/05/2023 8:22 AM CDT Oxygen Saturation 90% 06/05/2023 9:30 AM CDT Inhaled Oxygen Concentration - - Weight 98.9 kg (218 lb) 06/05/2023 8:22 AM CDT Height 185.4 cm (6' 1) 06/05/2023 8:22 AM CDT Body Mass Index 28.76 06/05/2023 8:22 AM CDT Plan of Treatment Health Maintenance Due Date Last Done Comments Colorectal Cancer Screening Colonoscopy (10 Years) 1966 Annual Physical 1969 Hepatitis C 1984 Pneumococcal Vaccine: 50+ Years (1 of 2 - PCV) 1985 Zoster Vaccines (1 of 2) 2016 COVID-19 Vaccine (4 - 2023-2 5 season) 2024 08/27/2021, 01/01/2021, 12/04/2020 DTaP, Tdap and Td Vaccines ( 3 - Td or Tdap) 09/27/2031 09/27/2021, 05/30/2019, 1965 Meningococcal B Vaccine Aged Out No l onger eligible based on patient's age to complete this topic Meningococcal Vaccine Aged Out No carmita brennon eligible based on patient's age to complete this topic RSV Immunizations Under 20 Months Aged Out No longer eligible b ased on patient's age to complete this topic Insurance [facility] Advance Directives Documents on File Type Date Recorded Patient Magnetic Tape Typewriter Operator Expl anation Legal Documents 02/16/2023 1:31 PM BILLING REQ FOR [employer] DOS 03/16/22 TO PRESENT SFL Care Teams Radio Personality Relationship Specialty Start Date End Date Joaquin Aguiar MD [address] [place] [address] PCP - General FAMILY PRACTICE 04/16/19
== END 2025-05-10 17:27 | disposition home or self-care (01) ==
LOC: CHSED 17:28
PROVIDERS: Emergency Provider Emergency Medicine; PCP Family Medicine
DX: R56.9 Unspecified convulsions (principal)
CPT/HCPCS: 99281

== ENCOUNTER 2025-05-27 09:25 | Outpatient (CLI) | payer OTHER, SELFPAY ==
--- OUTSIDE RECORDS SUMMARY | 2025-05-27 10:32 | XMS_ITS | Clinical Summary ---
Author Organization [facility] Address [address] [address] Care Team Providers Care Sprinkling System Installer Name Role Phone Joaquin Aguiar MD Primary Care Provider [phone] Source Comments [facility],non-owned Affiliates and Associated Physician Practices is amultiple site organization consisting of ambulatory clinics and hospital sitesin [place], [place], [place] and [place]. This disclosure is being madepursuant to the Care Everywhere program and may not contain all information available regarding this patient. 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 Gender Identity Not on file Sexual Orientation Not on file Last Filed Vital Signs Vital Sign Reading Time Taken Comments Blood Pressure 124/77 08/31/2024 9:00 AM MUSIC COMPOSITION TEACHER Pulse 77 08/31/2024 9:00 AM MUSIC COMPOSITION TEACHER Temperature 36.4 C (97.5 F) 08/31/2024 7:25 AM MUSIC COMPOSITION TEACHER Respiratory Rate 20 08/31/2024 8:11 AM MUSIC COMPOSITION TEACHER Oxygen Saturation 99% 08/31/2024 9:00 AM MUSIC COMPOSITION TEACHER Inhaled Oxygen Concentration - - Weight 99.8 kg (220 lb) 08/31/2024 7:25 AM MUSIC COMPOSITION TEACHER Height 185.4 cm (6' 1) 08/31/2024 7:25 AM MUSIC COMPOSITION TEACHER Body Mass Index 29.03 08/31/2024 7:25 AM MUSIC COMPOSITION TEACHER Plan of Treatment Health Maintenance Due [...] to complete this topic Insurance Care Teams Sprinkling System Installer Relationship Specialty Start Date End Date Joaquin Aguiar MD [address] [place] [address] PCP - General Family Medicine 08/31/24
--- OUTSIDE RECORDS SUMMARY | 2025-05-27 10:32 | XMS_ITS | Clinical Summary ---
Author Organization [facility] Address [address] [place] [address] Care Team Providers Care Registration Officer Name Role Phone Joaquin Aguiar MD Primary Care Provider [phone] Joaquin Aguiar MD Unavailable [phone] Joaquin Aguiar MD Unavailable [phone] Allergies No known active allergies Medications atorvastatin [...] 08/03/2021 Assessment & Plan (09/13/2021 3:50 PM ENVIRONMENTAL MARKETING REPRESENTATIVE): Patient has undergone cerebrovascular and cardiovascular testing which is unrevealing save for elevation in cholesterol. He will be following up with his PCP for management of his lipids. He will continue on aspirin therapy at this time for cerebrovascular prophylaxis. He has no demonstrated hypertension. Assessment & Plan (08/03/2021 3:47 PM ENVIRONMENTAL MARKETING REPRESENTATIVE): Patient experienced a 30 minutes episode of [...] polysomnogram. Assessment & Plan (11/12/2020 2:54 PM ENVIRONMENTAL MARKETING REPRESENTATIVE): Patient has subjective memory loss. Objectively is [...] 11/12/2020 Assessment & Plan (09/13/2021 3:49 PM ENVIRONMENTAL MARKETING REPRESENTATIVE): Patient continues on lamotrigine 400 mg b.i.d. at this time with no clinical seizure events or lapses of awareness. EEG is improved but still demonstrates occasional epileptiform changes. He will continue on lamotrigine 400 mg b.i.d. at this time and medication has been renewed. He wishes to pursue alternate neurologic care given my pending senior care and patient has been given names of several neurologist both at [facility] as well as in [place] near his home. Assessment & Plan (08/03/2021 3:48 PM ENVIRONMENTAL MARKETING REPRESENTATIVE): Patient continues on lamotrigine 400 mg b.i.d. [...] reassessment. Assessment & Plan (11/12/2020 2:53 PM ENVIRONMENTAL MARKETING REPRESENTATIVE): Patient has a history of complex partial [...] regimen. Assessment & Plan (11/12/2020 2:55 PM ENVIRONMENTAL MARKETING REPRESENTATIVE): Patient has a fine intermittent tremor in [...] on file Legal Sex Male 1:22 PM ENVIRONMENTAL MARKETING REPRESENTATIVE Gender Identity Not on file Sexual Orientation Not on file Obstetrics History Last Filed Vital Signs Vital Sign Reading Time Taken Comments Blood Pressure 110/62 03/26/2024 3:33 PM CDT Pulse 86 10/23/2023 9:49 AM ENVIRONMENTAL MARKETING REPRESENTATIVE Temperature 36.8 C (98.3 F) 10/23/2023 9:49 AM ENVIRONMENTAL MARKETING REPRESENTATIVE Respiratory Rate 18 10/23/2023 9:49 AM ENVIRONMENTAL MARKETING REPRESENTATIVE Oxygen Saturation 99% 10/23/2023 9:49 AM ENVIRONMENTAL MARKETING REPRESENTATIVE Inhaled Oxygen Concentration - - Weight 97.5 [...] HEPATITIS C AB Routine 09/05/2013 4:21 AM ENVIRONMENTAL MARKETING REPRESENTATIVE from Last 3 Months or Most Recently Relevant to Health Maintenance Results * Serum Hepatitis C ab (09/05/2013 4:21 AM ENVIRONMENTAL MARKETING REPRESENTATIVE) HCV ab Negative NEG HISTORICAL RESULTS Comment: Interpretive Data If confirmation is required, call Laboratory Customer Service to request sample to be sent to [facility] for Hepatitis C Virus (HCV) RNA Detection and Quantitation by Real-Time Reverse Steward/Stewardess Chief Cargo Vessel-PCR (RT-PCR). Current interpretive data was last revised on 2011 Serum 09/05/2013 4:21 AM ENVIRONMENTAL MARKETING REPRESENTATIVE Narrative HISTORICAL RESULTS - 09/06/2013 4:40 AM ENVIRONMENTAL MARKETING REPRESENTATIVE Test performed at [facility], [address],, [place], [place], [facility], [address]. Brandon Schilling LAB BLOOD ORDERABLES Final Result Performing Organization Address City/State/[facility] Co de Phone Number HISTORICAL RESULTS from Last 3 Months or Most Recently Relevant to Health Maintenance Insurance [facility] CHO[employer] PL[employer] CHOICE PLUS Advance Directives For more information, please contact: [phone] * Full Code (Latest Code Status on File) Date Activated Date Inactivated Comments 05/31/2019 10:52 AM 06/01/2019 9:53 PM Care Teams Registration Officer Relationship Specialty Start Date End Date Joaquin Aguiar MD [address] [place] [address] PCP - General 12/31/20 Joaquin Aguiar MD [address] [place] [address] Family Medicine 12/31/20 [place] [address] [place] [address] [place] [address] 05/30/19
--- OUTSIDE RECORDS SUMMARY | 2025-05-27 10:32 | XMS_ITS | Clinical Summary ---
Author Organization [facility] Address [address] [place] [address] Phone Care Team Providers Care Wall Insulation Sprayer Name Role Phone Joaquin Aguiar MD Primary Care Provider [phone] Medications lamoTRIgine (LaMICtal) 200 MG Tablet Take [...] 03/12/2025 9:30 AM CDT Outpatient Clinic Visit [facility] [address] [place] [address] Gerardo Seaman, EQUAL OPPORTUNITY COUNSELOR Moderate recurrent major depression (HCC) (Primary Dx) [...] (1 of 2) 2016 PSA Discussion 2021 Influenza Immunization (#1) 05/19/202507/19, 06/30/2014, 07/02/2013 SARS-COV-2 Immunization ( season) 2025 08/27/2021, 01/01/2021, 12/04/2020 Respiratory Syncytial Virus (RSV) Immunization (Adult) (1 [...] Behavioral Health Behavioral Health Yes Gerardo Seaman, EQUAL OPPORTUNITY COUNSELOR Note: I just want to feel better with my depression, have more energy and notivation Insurance [facility] Care Teams Wall Insulation Sprayer Relationship Specialty Start Date End Date Joaquin Aguiar MD [address] [place] [address] PCP - General Family Medicine 03/12/25
[2025-05-27 10:42] LABS: Hematocrit 48.5 % (40.0-54.0); Hemoglobin 16.5 g/dL (14.0-18.0); Immature Granulocyte Percent A 0.4 % (0.0-0.0); Lymphocytes Absolute Auto 1.69 K/mm3 (1.10-4.50); Mean Corpuscular HGB Conc 34.0 g/dL (32-36); Mean Corpuscular Hemoglobin 31.3 pg (27.0-31.0); Mean Corpuscular Volume 91.9 fL (78.0-102.0); Nucleated Red Blood Cells Absolute Auto 0.00 K/mm3 (0.00-0.00); Nucleated Red Blood Cells Perc 0.0 % (0-0.0); Platelet Count Result 301 K/mm3 (150-420); Red Blood Count 5.28 M/mm3 (4.70-6.10); White Blood Count 5.7 K/mm3 (4.8-10.8)
[2025-05-27 10:48] LABS: Alanine Aminotransferase 33 U/L (6-50); Albumin Level 4.6 g/dL (3.5-5.1); Alkaline Phosphatase 85 U/L (38-126); Anion Gap 9 mmol/L (4-12); Aspartate Amino Transferase 43 U/L (17-59); Bilirubin,Total 0.8 mg/dL (0.2-1.3); Blood Urea Nitrogen 16 mg/dL (9-20); Calcium 9.3 mg/dL (8.4-10.2); Carbon Dioxide 30 mmol/L (22-30); Chloride 102 mmol/L (98-107); Cholesterol 117 mg/dL (0-200); Estimated Glomerular Filt Rate > 60; Glucose 103 mg/dL (65-110); HDL Direct 35 mg/dL; Osmolality Calculated 293 mOsm/kg (285-295); Potassium 4.6 mmol/L (3.4-5.0); Sodium 141 mmol/L (137-145); Total Protein 6.9 g/dL (6.3-8.2); Triglycerides 104 mg/dL (<150)
[2025-05-27 11:05] LABS: Hemoglobin A1C 5.1 % (<5.7)
[2025-05-28 17:37] LABS: Thyroid Stimulating Hormone Reflex 0.928 uIU/mL (0.465-4.68)
[2025-05-28 17:56] LABS: Vitamin B12 380.0 pg/mL (239-931)
[2025-06-07 02:07] LABS: Testosterone, Total, LC/MS 487 ng/dL (.)
== END 2025-05-27 09:26 | disposition home or self-care (01) ==
PROVIDERS: PCP Family Medicine; Visit Provider Family Medicine
DX: Z79.899 Other long term (current) drug therapy (principal); F32.9 Major depressive disorder, single episode, unspecified; Z83.3 Family history of diabetes mellitus; N18.31 Chronic kidney disease, stage 3a; E78.5 Hyperlipidemia, unspecified
CPT/HCPCS: 36415; 80053; 80061; 82607; 83036; 84403; 84443; 85025